=== PATIENT | male | born 1980 | race Caucasian/White ===

== ENCOUNTER 2020-08-18 08:19 | Emergency (ER) | payer SELFPAY ==
[~2020-08-18] VITALS: Ht 185.4 cm; Wt 106.6 kg
[~2020-08-18 08:19] MED LIST: ACET500; AMOX500 PO; ANTOXYBENA OT; AZIT500 PO; CEPH500 PO; COLD RELIEF; FAMO10; HYDACE5 PO; IBUP800 PO; NAPR500 PO; NEOPOLHYDS OT; PANT40 PO; PERM5TC TOP; PROM25 PO; PSECHLCR PO; RANI150
== END 2020-08-18 10:58 | disposition home or self-care (01) ==
LOC: ER 08:19
DX: M25.561 Pain in right knee (principal); F17.200 Nicotine dependence, unspecified, uncomplicated
CPT/HCPCS: 29515; 73562-RT; 99283-25

== ENCOUNTER 2020-12-23 21:12 | Emergency (ER) | payer OTHER ==
[~2020-12-23] VITALS: Ht 185.4 cm; Wt 117.9 kg
== END 2020-12-23 21:30 | disposition left against medical advice (07) ==
LOC: ER 21:12
DX: R10.9 Unspecified abdominal pain (principal); R11.2 Nausea with vomiting, unspecified; R19.7 Diarrhea, unspecified; F17.200 Nicotine dependence, unspecified, uncomplicated
CPT/HCPCS: 99283

== ENCOUNTER 2024-01-15 09:33 | Day surgery (SDC) | payer OTHER ==
[~2024-01-15] VITALS: Ht 185.4 cm; Wt 114.9 kg
[~2024-01-15 09:33] MED LIST changes: +Lactated Ringer's 1,000 ML IV ONE; +Lactated Ringer's 1,000 ML ONE; +propofoL 50 ML IV ONE
[2024-01-15] MEDS ORDERED: PANT20 (10:49)
[2024-01-15] MEDS ORDERED: Lactated Ringer's 1,000 ML IV ONE (11:18)
[2024-01-15] MEDS ORDERED: propofoL 50 ML IV ONE (11:55)
[2024-01-15 12:47] VITALS: BP 156/84
--- NOTE | 2024-01-15 17:20 | NUR ---
01/15/24 1720 CED HOUGH FROZE AND NEEDED RESTARTED DURING PROCEDURE; LATE ENTRY INPUT OF MAR AND RECORDS.
== END 2024-01-15 12:41 | disposition home or self-care (01) ==
LOC: ORSCSDS 09:33
PROVIDERS: Internal Medicine Gastroenterology
PROC: 0DB68ZX Excision of Stomach, Via Natural or Artificial Opening Endoscopic, Diagnostic (ICD-10-PCS; principal; 2024-01-15 11:15)
PROC: 0DB58ZX Excision of Esophagus, Via Natural or Artificial Opening Endoscopic, Diagnostic (ICD-10-PCS; principal; 2024-01-15 11:15)
PROC: 0DBN8ZX Excision of Sigmoid Colon, Via Natural or Artificial Opening Endoscopic, Diagnostic (ICD-10-PCS; principal; 2024-01-15 11:15)
DX: R10.13 Epigastric pain (principal); K44.9 Diaphragmatic hernia without obstruction or gangrene; K29.70 Gastritis, unspecified, without bleeding; K63.5 Polyp of colon; Z12.11 Encounter for screening for malignant neoplasm of colon; R11.2 Nausea with vomiting, unspecified; K21.9 Gastro-esophageal reflux disease without esophagitis; Z87.891 Personal history of nicotine dependence
CPT/HCPCS: 88305; 88312; 88341; 88342; J2704; J7120

== ENCOUNTER → 2024-03-12 | Outpatient (CLI) | payer OTHER ==
[~2024-03-12] MED LIST changes: -Lactated Ringer's 1,000 ML IV ONE; -Lactated Ringer's 1,000 ML ONE; +PANT20; -propofoL 50 ML IV ONE
[2024-03-13 17:56] LABS: U Cannabinoids Screen DETECTED; U Opiates Screen DETECTED
[2024-03-13 17:57] LABS: U Amphetamine Screen Not Detected; U Barbituate Screen Not Detected; U Benzodiazapine Screen Not Detected; U Buprenorphine Screen Not Detected; U Cocaine Screen Not Detected; U Methadone Screen Not Detected; U Methamphetamine Screen Not Detected; U Oxycodone Screen DETECTED; U Phencyclidine Screen Not Detected
== END ==
LOC: LAB SHORT 15:56 → LAB 15:56
PROVIDERS: Nurse Practitioner Family
DX: Z51.81 Encounter for therapeutic drug level monitoring (principal); Z79.891 Long term (current) use of opiate analgesic

== ENCOUNTER → 2025-04-21 | Outpatient (CLI) | payer OTHER ==
[2025-04-21 17:21] LABS: U Cannabinoids Screen DETECTED; U Opiates Screen DETECTED; U Oxycodone Screen DETECTED
[2025-04-21 17:22] LABS: U Amphetamine Screen Not Detected; U Barbiturate Screen Not Detected; U Benzodiazapine Screen Not Detected; U Buprenorphine Screen Not Detected; U Cocaine Screen Not Detected; U Methadone Screen Not Detected; U Methamphetamine Screen Not Detected; U Phencyclidine Screen Not Detected
== END | disposition home or self-care (01) ==
LOC: LAB 14:27 → LAB SHORT 14:27
PROVIDERS: Nurse Practitioner Family
DX: Z51.81 Encounter for therapeutic drug level monitoring (principal); Z79.891 Long term (current) use of opiate analgesic